=== PATIENT | female | born 1960 ===

== ENCOUNTER 2021-12-13 09:45 | Inpatient (IN) | payer OTHER ==
[~2021-12-13] VITALS: Ht 157.5 cm; Wt 73.9 kg
[2021-12-13] MEDS ORDERED: METFORMIN HCL1000 M3 PO (11:16)
[2021-12-13] MEDS ORDERED: RUBRACA PO (11:16)
[2021-12-13] MEDS ORDERED: TOPROL XL50 M1 PO (11:16)
[2021-12-13] MEDS ORDERED: COZAAR50 MG PO (11:17)
[2021-12-13] MEDS ORDERED: HYDROCHLOROTHIA25 MG PO (11:17)
[2021-12-13] MEDS ORDERED: CRESTOR20 MG PO (11:18)
[2021-12-13] MEDS ORDERED: SYNTHROID100 MCG PO (11:31)
== END 2021-12-17 12:33 | disposition home or self-care (01) | DRG 336 ==
LOC: O/R 12-14 05:00 → OB/GYN 12-14 05:00 → SURG 12-14 05:30 → OB/GYN 12-14 13:03
PROVIDERS: ADMIT Specialist; ATTEND Specialist
PROC: 0FB00ZZ Excision of Liver, Open Approach (ICD-10-PCS; 2021-12-14)
PROC: 0DBU0ZZ Excision of Omentum, Open Approach (ICD-10-PCS; 2021-12-14)
PROC: 0DNW0ZZ Release Peritoneum, Open Approach (ICD-10-PCS; principal; 2021-12-14 05:30)
DX: C78.6 Secondary malignant neoplasm of retroperitoneum and peritoneum (principal); C78.7 Secondary malignant neoplasm of liver and intrahepatic bile duct; C56.9 Malignant neoplasm of unspecified ovary; N73.6 Female pelvic peritoneal adhesions (postinfective); Z20.822 Contact with and (suspected) exposure to COVID-19